=== PATIENT | female | born 1960 | race Caucasian/White ===

== ENCOUNTER → 2018-07-28 | Outpatient (CLI) | payer OTHER ==
[~2018-07-28] MED LIST: ATOR10TA PO; METF-688 PO; SITA50TA PO; VENL75CA6 PO
[2018-07-28 15:56] LABS: ALANINE AMINOTRANSFERASE 34 U/L (12-78); ALBUMIN 3.9 g/dL (3.4-5.0); ANION GAP 8 mmol/L (5-15); CALCIUM 10.6 mg/dL (8.5-10.1); CHLORIDE 108 mmol/L (98-107); CREATININE 0.99 mg/dL (0.55-1.02)
[2018-07-28 15:58] LABS: ALKALINE PHOSPHATASE 91 U/L (45-117); BILIRUBIN,TOTAL 0.3 mg/dL (0.2-1.0); TOTAL PROTEIN 7.7 g/dL (6.4-8.2)
== END | disposition home or self-care (01) ==
LOC: STAR 14:51
PROVIDERS: ATTEND Surgery
DX: Z01.818 Encounter for other preprocedural examination (principal)
CPT/HCPCS: 36415; 80053; 93005

== ENCOUNTER 2018-08-02 05:56 | Day surgery (SDC) | payer OTHER ==
[~2018-08-02] VITALS: Ht 160 cm; Wt 99.0 kg
[2018-08-02] MEDS ORDERED: LACTATED RINGERS 1,000 ML IV SCH (06:39)
[2018-08-02] MEDS ORDERED: GABAPENTIN 300 MG CAPSULE ONE (07:10)
[2018-08-02] MEDS ORDERED: ACETAMINOPHEN 500 MG TABLET ONE (07:10)
[2018-08-02] MEDS ORDERED: ONDANSETRON ODT 8 MG ONE (07:11)
[2018-08-02] MEDS ORDERED: FENTANYL PF 250 MCG/5ML ONE (07:19)
[2018-08-02] MEDS ORDERED: MIDAZOLAM 1 MG/ML, 2ML ONE (07:19)
[2018-08-02] MEDS ORDERED: GABAPENTIN 300 MG CAPSULE PO ONE (07:30)
[2018-08-02] MEDS ORDERED: ACETAMINOPHEN 500 MG TABLET PO ONE (07:30)
[2018-08-02] MEDS ORDERED: ONDANSETRON ODT 8 MG PO ONE (07:30)
[2018-08-02] MEDS ORDERED: LABETALOL 5MG/ML, 20ML IV PRN (08:00)
[2018-08-02] MEDS ORDERED: hydrALAzine 20 MG/ML, 1ML IV PRN (08:00)
[2018-08-02] MEDS ORDERED: MIDAZOLAM 1 MG/ML, 2ML IV PRN (08:00)
[2018-08-02] MEDS ORDERED: OXYcodone 5 MG/5 ML ORAL.SOL UDC PO PRN (08:00)
[2018-08-02] MEDS ORDERED: MEPERIDINE/PF 25MG/0.5ML IVPush PRN (08:00)
[2018-08-02] MEDS ORDERED: ALBUTEROL/IPRATROPIUM 2.5MG/0.5MG, 3 ML NPPB PRN (08:00)
[2018-08-02] MEDS ORDERED: ONDANSETRON 2MG/ML, 2ML IV PRN (08:00)
[2018-08-02] MEDS ORDERED: PROMETHAZINE 25 MG/ML, 1ML IV PRN (08:00)
[2018-08-02] MEDS ORDERED: ONDANSETRON 2MG/ML, 2ML ONE (08:04)
[2018-08-02] MEDS ORDERED: CEFAZOLIN 1,000 MG ONE (08:04)
[2018-08-02] MEDS ORDERED: PROPOFOL 10 MG/ML, 20ML ONE (08:04)
[2018-08-02] MEDS ORDERED: FENTANYL PF 100 MCG/2ML ONE (08:48)
[2018-08-02] MEDS ORDERED: OXYcodone 5 MG/5 ML ORAL.SOL UDC ONE (08:48)
[2018-08-02] MEDS: FENTANYL PF 100 MCG/2ML IV PRN ×2 (08:53→09:35)
[2018-08-02 09:02] LABS: IOPTH BASELINE 215 pg/mL
[2018-08-02 09:03] LABS: 10MIN %DROP IOPTH 82 %; 5MIN %DROP IOPTH 75 %
[2018-08-02] MEDS ORDERED: hydrALAzine 20 MG/ML, 1ML ONE (09:40)
[2018-08-02] MEDS ORDERED: HYDROmorphone 1 MG/ML, 1ML ONE (09:43)
[2018-08-02] MEDS: HYDROmorphone 2 MG/ML, 1ML IVPush PRN ×2 (09:46→10:00)
[2018-08-02] MEDS ORDERED: SUCCINYLCHOLINE 20 MG/ML, 10ML ONE (10:57)
[2018-08-02] MEDS ORDERED: ROCURONIUM 10MG/ML,5ML ONE (10:57)
[2018-08-02] MEDS ORDERED: PHENYLEPHRINE 10 MG/ML ONE (10:57)
[2018-08-02] MEDS ORDERED: DEXAMETHASONE 4 MG/ML, 1ML ONE (10:57)
== END 2018-08-02 12:05 | disposition home or self-care (01) ==
LOC: OUT 05:56
PROVIDERS: ATTEND Surgery
DX: D35.1 Benign neoplasm of parathyroid gland (principal); E21.0 Primary hyperparathyroidism; F32.9 Major depressive disorder, single episode, unspecified; E11.9 Type 2 diabetes mellitus without complications; K21.9 Gastro-esophageal reflux disease without esophagitis; E78.5 Hyperlipidemia, unspecified; G47.33 Obstructive sleep apnea (adult) (pediatric); E66.9 Obesity, unspecified; Z68.38 Body mass index [BMI] 38.0-38.9, adult; Z79.899 Other long term (current) drug therapy; Z98.890 Other specified postprocedural states; Z72.89 Other problems related to lifestyle; Z79.84 Long term (current) use of oral hypoglycemic drugs
CPT/HCPCS: 60500; 82962; 83970; 88305; 88331; C1760; J0330; J0360; J1100; J1170; J2250; J2370; J2405; J2704; J3010; J7120; Q0162; J0690

== ENCOUNTER → 2019-11-16 | Outpatient (CLI) | payer OTHER ==
[~2019-11-16] MED LIST changes: +OMNIPAQUE 350 MG/ML, 100ML BOTTLE ONE
== END | disposition home or self-care (01) ==
LOC: CFH 11:09
PROVIDERS: ATTEND Nurse Practitioner Acute Care
DX: C54.1 Malignant neoplasm of endometrium (principal); K76.0 Fatty (change of) liver, not elsewhere classified; Z90.710 Acquired absence of both cervix and uterus
CPT/HCPCS: 71260; 74177; Q9967